=== PATIENT | male | born 1940 | race Two or more races ===

== ENCOUNTER 2024-07-17 21:25 | Emergency (ER) | payer OTHER ==
[~2024-07-17] VITALS: Ht 175.3 cm; Wt 74.8 kg
[2024-07-17] MEDS ORDERED: BACITRACIN-NEOMYCIN-POLYMYXIN 0.9 GM PACKET TOP ONE (22:42)
[2024-07-17] MEDS ORDERED: HYDROGEN PEROXIDE 473 ML BOTTLE TOP ONE (22:42)
== END 2024-07-18 00:10 | disposition home or self-care (01) ==
LOC: ER 21:25
DX: S09.8XXA Other specified injuries of head, initial encounter (principal); S50.819A Abrasion of unspecified forearm, initial encounter; W10.8XXA Fall (on) (from) other stairs and steps, initial encounter; Y93.89 Activity, other specified; Y92.59 Other trade areas as the place of occurrence of the external cause; Y99.8 Other external cause status